=== PATIENT | female | born 1995 | race Two or more races ===

== ENCOUNTER 2020-12-18 13:51 | Emergency (ER) | payer OTHER ==
[~2020-12-18] VITALS: Ht 170.2 cm; Wt 72.7 kg
--- NOTE | 2020-12-18 14:11 | NUR ---
PT AMBULATED TO ROOM FROM TRIAGE. PT CO URINE WITH STRONG ODOR FOR THE PAST 2 WEEKS. PT STATED THAT SHE IS EXPERIENCING RIGHT FLANK PAIN OVER THE PAST 2 DAYS. PT DENIES ANY FEVER, BLOOD IN URINE, BURNING DURING URINATION OR CHANGES IN BOWEL HABITS.
[2020-12-18 14:38] LABS: HCG UR SG 1.029 (1.003-1.030); MICROSCOPIC NOT IND
--- NOTE | 2020-12-18 15:15 | NUR ---
PT RESTING COMFORTABLY IN [facility]. CALL LIGHT WITHIN REACH.
[2020-12-18 15:24] VITALS: BP 96/62
[2020-12-18 15:31] LABS: BASOPHILS % (AUTO) 2 % (0-1); EOSINOPHILS % (AUTO) 3 % (1-7); LYMPHOCYTES % (AUTO) 35 % (22-44); MEAN CORPUSCULAR HEMOGLOBIN 20.5 pg (27.0-34.8); MEAN PLATELET VOLUME 7.5 fL (7.4-10.4); MONOCYTES % (AUTO) 8 % (2-9); NEUTROPHILS % (AUTO) 53 % (42-75); PLATELET COUNT 484 x10^3/uL (130-400); RED BLOOD COUNT 4.45 x10^6/uL (3.82-5.3); RED CELL DISTRIBUTION WIDTH 17.1 % (9.6-15.2)
[2020-12-18 15:32] LABS: MD NO; MEAN CORPUSCULAR HGB CONC 29.9 g/dL (32.4-35.8)
[2020-12-18 15:40] LABS: ALANINE AMINOTRANSFERASE 29 U/L (12-78); ALBUMIN 3.8 g/dL (3.4-5.0); ANION GAP 4 mmol/L (5-15); CALCIUM 8.3 mg/dL (8.5-10.1); CHLORIDE 110 mmol/L (98-107); CREATININE 0.71 mg/dL (0.55-1.02)
[2020-12-18 15:42] LABS: ALKALINE PHOSPHATASE 70 U/L (45-117); BILIRUBIN,TOTAL 0.4 mg/dL (0.2-1.0); TOTAL PROTEIN 7.1 g/dL (6.4-8.2)
--- NOTE | 2020-12-18 16:20 | NUR ---
PT RESTING COMFORTBALY IN [facility]. CALL LIGHT WITHIN REACH.
--- NOTE | 2020-12-18 17:03 | NUR ---
DISCHARGE INSTRUCTIONS REVIEWED WITH PT. ALL QUESTIONS ANSWERED AT THIS TIME.
== END 2020-12-18 17:05 | disposition home or self-care (01) ==
LOC: ED 14:23
DX: R10.31 Right lower quadrant pain (principal); D63.8 Anemia in other chronic diseases classified elsewhere; R00.0 Tachycardia, unspecified
CPT/HCPCS: 36415; 80053; 81003; 81025; 85025; 99283